=== PATIENT | male | born 1975 | race Caucasian/White ===

== ENCOUNTER 2020-11-08 20:09 | Emergency (ER) | payer MEDICARE ==
[2020-11-08 20:56] LABS: HEMOGLOBIN 15.1 gm/dl (14.0-17.5); RED BLOOD COUNT 5.1 M/UL (4.20-5.50); WHITE BLOOD COUNT 7.6 K/UL (4.5-11.0)
[2020-11-08 21:17] LABS: BUN/CREATININE RATIO 13 (0-10)
[2020-11-08] MEDS ORDERED: PREDNISONE20 MG PO (21:31)
[2020-11-08] MEDS ORDERED: ASPIRIN CHEWABL81 MG PO (21:33)
== END 2020-11-08 22:00 | disposition home or self-care (01) ==
LOC: ER1 20:09
PROVIDERS: Family Medicine
DX: R07.9 Chest pain, unspecified (principal); R73.9 Hyperglycemia, unspecified; I10 Essential (primary) hypertension; L50.9 Urticaria, unspecified
CPT/HCPCS: 71046; 80053; 82550; 82553; 83874; 84484; 85025; 93005; 99285